=== PATIENT | male | born 1960 | race Caucasian/White ===

== ENCOUNTER 2021-09-14 14:10 | Outpatient (CLI) | payer OTHER | END 2021-09-14 14:11 | disposition home or self-care (01) | LOC: NAV RAD 14:10 | PROVIDERS: ATTEND Family Medicine | DX: Z02.71 Encounter for disability determination (principal); J44.9 Chronic obstructive pulmonary disease, unspecified; Z87.81 Personal history of (healed) traumatic fracture | CPT/HCPCS: 71046 ==